=== PATIENT | female | born 1950 | race Caucasian/White ===

== ENCOUNTER → 2019-02-23 | Outpatient (CLI) | payer OTHER ==
[~2019-02-23] MED LIST: ASPI325; RANI150
[2019-02-23 16:11] LABS: BASOPHILS ABSOLUTE AUTO 0.04 K/mm3 (0.00-0.23); BASOPHILS PERCENT AUTO 1 % (0-2); EOSINOPHILS ABSOLUTE AUTO 0.31 K/mm3 (0.00-0.68); EOSINOPHILS PERCENT AUTO 4 % (0-6); Hematocrit 35.9 % (33.0-51.0); Hemoglobin 12.4 g/dL (11.5-16.0); IMMATURE GRAN ABSOLUTE AUTO 0.03 K/mm3 (0.00-0.10); IMMATURE GRAN PERCENT AUTO 0 % (0-1); LYMPHOCYTES PERCENT AUTO 17 % (21-46); MONOCYTES ABSOLUTE AUTO 0.47 K/mm3 (0.16-1.47); MONOCYTES PERCENT AUTO 6 % (4-13); Mean Corpuscular HGB 31.2 pg (26.0-34.0); Mean Corpuscular HGB Conc 34.5 g/dL (31.5-36.5); Mean Corpuscular Volume 90 fL (80-100); Mean Platelet Volume 9.7 fL (9.1-12.4); NEUTROPHILS ABSOLUTE AUTO 6.14 K/mm3 (1.96-9.15); NEUTROPHILS PERCENT AUTO 73 % (41-73); Platelet Count 372 K/mm3 (150-400); RDW Coefficient Variation 12.3 % (11.7-14.2); RDW Standard Deviation 40.5 fL (35.1-46.3); Red Blood Cell Count 3.98 M/mm3 (3.80-5.20); White Blood Cell Count 8.39 K/mm3 (4.00-11.30)
[2019-02-23 16:25] LABS: Alanine Aminotransfer (ALT/SGP 21 U/L (12-78); Albumin, Blood 3.8 g/dL (3.4-5.0); Albumin/Globulin Ratio 0.9 (0.8-1.8); Alk Phos 87 U/L (40-126); Anion Gap 10 mmol/L (6-16); Aspartate Aminotrans (AST/SGOT 21 U/L (12-37); Bilirubin, Total 0.2 mg/dL (0.1-1.0); Blood Urea Nitrogen 18 mg/dL (8-24); Bun/Creatinine Ratio 20.2 (12.0-20.0); CO2, Blood 25 mmol/L (21-32); Calcium, Blood 9.7 mg/dL (8.5-10.1); Chloride, Blood 101 mmol/L (98-108); Creatinine, Blood 0.89 mg/dL (0.40-1.00); Globulin, Blood 4.3 g/dL (2.2-4.0); Glomerular Filtration Rate >60 (60-); Glucose, Blood 130 mg/dL (70-99); Potassium, Blood 3.8 mmol/L (3.5-5.5); Sodium, Blood 136 mmol/L (136-145); Total Protein, Blood 8.1 g/dL (6.4-8.2)
== END ==
LOC: LAB SHORT 16:05 → LAB EV 16:05
PROVIDERS: Physician Assistant
DX: R10.9 Unspecified abdominal pain (principal)
CPT/HCPCS: 80053; 85025

== ENCOUNTER 2024-03-21 15:10 | Day surgery (SDC) | payer OTHER | END 2024-03-21 22:36 | disposition home or self-care (01) | LOC: US 15:10 | DX: R18.8 Other ascites (principal); C56.2 Malignant neoplasm of left ovary | CPT/HCPCS: 49083 ==

== ENCOUNTER 2024-04-27 14:27 | Day surgery (SDC) | payer OTHER | END 2024-04-27 22:57 | disposition home or self-care (01) | LOC: US 14:27 | DX: R18.8 Other ascites (principal); C56.2 Malignant neoplasm of left ovary | CPT/HCPCS: 49083 ==

== ENCOUNTER 2024-05-02 14:38 | Day surgery (SDC) | payer OTHER | END 2024-05-02 22:55 | disposition home or self-care (01) | LOC: US 14:38 | DX: C56.2 Malignant neoplasm of left ovary (principal); R18.0 Malignant ascites | CPT/HCPCS: 32555; 36415; 71045; 71046; 85027; 85610; 85730 ==

== ENCOUNTER 2024-06-01 14:27 | Day surgery (SDC) | payer OTHER | END 2024-06-01 23:10 | disposition home or self-care (01) | LOC: US 14:27 | DX: J90 Pleural effusion, not elsewhere classified (principal); C80.1 Malignant (primary) neoplasm, unspecified; C56.2 Malignant neoplasm of left ovary | CPT/HCPCS: 32555; 71045 ==

== ENCOUNTER 2024-07-03 11:28 | Day surgery (SDC) | payer OTHER ==
[~2024-07-03] VITALS: Ht 157.5 cm; Wt 55.3 kg
[~2024-07-03 11:28] MED LIST changes: +ALBU90OI; +ALERTNESS AID200 MG; +LOPE2C; +OYSTER SHELL 51 EAC2 PO; +TURMERIC500 M2 PO
[2024-07-03 12:01] VITALS: BP 113/71
[2024-07-03] MEDS ORDERED: IBUP200 (12:38)
[2024-07-03] MEDS ORDERED: OXYC10ER (12:38)
[2024-07-03] MEDS ORDERED: NS 250 ML IV ONE (14:29)
[2024-07-03] MEDS ORDERED: NS 500 ML IV ONE (14:29)
[2024-07-03] MEDS ORDERED: FentaNYL Citrate 50 MCG/ML 2 ML Injection ONE (14:41)
[2024-07-03] MEDS ORDERED: CeFAZolin Sodium 1000 mg Vial ONE (15:14)
[2024-07-03] MEDS ORDERED: NS 100 ML IV ONE (15:14)
--- NOTE | 2024-07-03 15:50 | NUR ---
PT BACK TO RECOVERY ROOM. PT SITTING UP IN RECLINER. PT GIVEN WATER AND SNACKS.
[2024-07-03 15:58] VITALS: BP 120/77
[2024-07-03 16:00] VITALS: BP 140/84
[2024-07-03 16:15] VITALS: BP 125/89
--- NOTE | 2024-07-03 16:21 | NUR ---
DR YUAN BACK IN TO SEE PT AND EDUCATE HER ON [employer] DRAINAGE SYSTEM. PT VERBALIZE UNDERSTANDING.
[2024-07-03 16:28] VITALS: BP 123/82
[2024-07-03 16:30] VITALS: BP 125/75
--- NOTE | 2024-07-03 16:56 | NUR ---
PT WHEELED OUT OF DEPT TO [facility]
== END 2024-07-03 17:00 | disposition home or self-care (01) ==
LOC: MHTC 11:28
PROC: 0W9B30Z Drainage of Left Pleural Cavity with Drainage Device, Percutaneous Approach (ICD-10-PCS; principal; 2024-07-03)
DX: C56.9 Malignant neoplasm of unspecified ovary (principal); R18.0 Malignant ascites; Z79.899 Other long term (current) drug therapy
CPT/HCPCS: 32550; 32555; 75989; 76937; 99152; 99153; C1729; C1769; J0690; J3010; J7040; J7050

== ENCOUNTER 2024-08-03 15:59 | Emergency (ER) | payer OTHER ==
[~2024-08-03] VITALS: Ht 162.6 cm; Wt 52.2 kg
[~2024-08-03 15:59] MED LIST changes: +IBUP200; +OXYC10ER
[2024-08-03 16:46] VITALS: BP 114/77
== END 2024-08-03 16:58 | disposition home or self-care (01) ==
LOC: ER 15:59
DX: R06.02 Shortness of breath (principal); R18.8 Other ascites; C56.9 Malignant neoplasm of unspecified ovary
CPT/HCPCS: 99283

== ENCOUNTER 2024-08-04 15:02 | Emergency (ER) | payer OTHER ==
[~2024-08-04] VITALS: Ht 157.5 cm; Wt 56.7 kg
[2024-08-04 15:25] VITALS: BP 113/76
[2024-08-04 15:56] LABS: BASOPHILS ABSOLUTE AUTO 0.05 K/mm3 (0.00-0.23); BASOPHILS PERCENT AUTO 1 % (0-2); EOSINOPHILS ABSOLUTE AUTO 0.21 K/mm3 (0.00-0.68); EOSINOPHILS PERCENT AUTO 3 % (0-6); Hematocrit 35.4 % (33.0-51.0); Hemoglobin 11.6 g/dL (11.5-16.0); IMMATURE GRAN ABSOLUTE AUTO 0.02 K/mm3 (0.00-0.10); IMMATURE GRAN PERCENT AUTO 0 % (0-1); LYMPHOCYTES ABSOLUTE AUTO 1.06 K/mm3 (0.84-5.20); LYMPHOCYTES PERCENT AUTO 14 % (21-46); MONOCYTES ABSOLUTE AUTO 0.69 K/mm3 (0.16-1.47); MONOCYTES PERCENT AUTO 9 % (4-13); Mean Corpuscular HGB 28.4 pg (26.0-34.0); Mean Corpuscular HGB Conc 32.8 g/dL (31.5-36.5); Mean Corpuscular Volume 87 fL (80-100); Mean Platelet Volume 9.5 fL (9.1-12.4); NEUTROPHILS ABSOLUTE AUTO 5.67 K/mm3 (1.96-9.15); NEUTROPHILS PERCENT AUTO 74 % (41-73); Platelet Count 486 K/mm3 (150-400); RDW Coefficient Variation 13.2 % (11.7-14.2); RDW Standard Deviation 41.2 fL (35.1-46.3); Red Blood Cell Count 4.08 M/mm3 (3.80-5.20)
[2024-08-04 16:14] LABS: Albumin, Blood 2.8 g/dL (3.4-5.0); Albumin/Globulin Ratio 0.6 (0.8-1.8); Bilirubin, Total 0.3 mg/dL (0.1-1.0); Bun/Creatinine Ratio 17.9 (12.0-20.0); Creatinine, Blood 0.62 mg/dL (0.40-1.00); Globulin, Blood 4.7 g/dL (2.2-4.0); Potassium, Blood 3.6 mmol/L (3.5-5.5); Total Protein, Blood 7.5 g/dL (6.4-8.2)
[2024-08-04 16:25] LABS: International Normalized Ratio 1.02; Prothrombin Time Results 10.9 Sec (9.7-11.5)
== END 2024-08-09 17:44 | disposition home or self-care (01) ==
LOC: ER 15:02
PROVIDERS: Physician Assistant
DX: C79.60 Secondary malignant neoplasm of unspecified ovary (principal); C34.92 Malignant neoplasm of unspecified part of left bronchus or lung; C34.91 Malignant neoplasm of unspecified part of right bronchus or lung; Z79.899 Other long term (current) drug therapy; Z91.048 Other nonmedicinal substance allergy status
CPT/HCPCS: 76705; 80053; 85025; 85610; 85730; 99283-25